=== PATIENT | female | born 1985 | race Asian ===

== ENCOUNTER 2020-08-29 09:39 | Outpatient (CLI) | payer OTHER ==
[2020-08-29 17:57] LABS: SARS-CoV-2 MS2 Positive; SARS-CoV-2 N Gene Negative; SARS-CoV-2 S Gene Negative; SARS-CoV-2 by NAA Not Detected (NotDetected); SARS-CoV-2 orf1ab Negative
== END 2020-08-29 09:40 | disposition home or self-care (01) ==
LOC: LABBT 09:39
PROVIDERS: ATTEND Obstetrics & Gynecology
DX: Z20.828 Contact with and (suspected) exposure to other viral communicable diseases (principal)
CPT/HCPCS: 87635; U0003

== ENCOUNTER 2020-09-01 09:37 | Inpatient (IN) | payer OTHER ==
[2020-09-01] MEDS: Lactated Ringer's 1,000 ML IV SCH ×2 (10:10→11:13)
[2020-09-01 10:52] VITALS: BMI 28.8
[2020-09-01] MEDS ORDERED: Oxytocin 10 UNITS/ML VIAL ONE (10:53)
[2020-09-01] MEDS ORDERED: ePHEDrine 50 MG/ML VIAL ONE (10:54)
[2020-09-01] MEDS ORDERED: Ketorolac Tromethamine 30 MG/ML VIAL ONE (10:54)
[2020-09-01] MEDS ORDERED: PHENYLEPHRINE-NS 100 MCG/ML 10 ML SYRINGE ONE (10:54)
[2020-09-01] MEDS ORDERED: Ondansetron PF 4 MG/2 ML Vial ONE (10:54)
[2020-09-01] MEDS ORDERED: Fentanyl 100 MCG/2 ML VIAL ONE (10:56)
[2020-09-01] MEDS ORDERED: Sodium Chloride 0.9% 10 ML ONE ×2 (10:58→21:18)
[2020-09-01] MEDS ORDERED: Promethazine HCl 25 MG/ML VIAL IM PRN ×3 (11:01→15:55)
[2020-09-01] MEDS ORDERED: Ondansetron PF 4 MG/2 ML Vial IVP PRN ×3 (11:01→15:55)
[2020-09-01] MEDS ORDERED: hydrALAZINE 20 MG/ML VIAL SLOW IVP PRN ×2 (11:01→15:55)
[2020-09-01] MEDS ORDERED: FLU VACC QS2020-21(6MOS UP)/PF 60 MCG/0.5 ML SYRINGE IM ONE (11:15)
[2020-09-01] MEDS ORDERED: Bicitra 30 ML UDCUP PO SCH (11:15)
[2020-09-01] MEDS ORDERED: CEFAZOLIN 2 GM in Premix Bag 1 BAG IVPB SCH (11:15)
[2020-09-01 11:22] LABS: Hemoglobin 12.6 g/dL (12.0-16.0); Mean Corpuscular HGB CONC 32.5 g/dL (32.0-36.0); Mean Corpuscular Hemoglobin 28.9 pg (27.0-31.0); Mean Corpuscular Volume 89.1 fL (78.0-98.0); Mean Platelet Volume 9.3 fL (7.4-10.4); Platelet Count 251 thou/uL (130-400); RBC Distribution Width 13.2 % (11.5-14.5); Red Blood Cell (RBC) Count 4.34 mill/uL (4.20-5.40)
[2020-09-01 12:06] LABS: HBSAg Index 0.25 S/CO (0-0.99); Hep B Surf Ag Non-Reactive S/CO (NonReactive); Syphilis Antibody Nonreactive (Nonreactive); Syphilis Antibody Index 0.04 S/CO (<1.00 Non-Reactive)
[2020-09-01] MEDS ORDERED: Promethazine HCl 25 MG SUPP PR PRN (13:46)
[2020-09-01] MEDS ORDERED: Naloxone HCl 0.4 mg/ml Vial IVP PRN ×2 (13:46)
[2020-09-01] MEDS ORDERED: diphenhydrAMINE 50 MG/ML VIAL IVP PRN (13:46)
[2020-09-01] MEDS ORDERED: Naloxone HCl 0.4 mg/ml Vial IV PRN (13:46)
[2020-09-01] MEDS ORDERED: Communication Order-Pharmacy FS SCH (14:00)
[2020-09-01] MEDS ORDERED: diphenhydrAMINE 25 MG CAP PO PRN (15:55)
[2020-09-01] MEDS ORDERED: Simethicone Chewable 80 MG TAB PO PRN (15:55)
[2020-09-01] MEDS ORDERED: Lanolin Ointment 7 GM TUBE TOP PRN (15:55)
[2020-09-01] MEDS ORDERED: Adacel (T-DAP) 0.5 ML SYRINGE IM ONE (15:55)
[2020-09-01] MEDS ORDERED: Acetaminophen 325 MG TAB PO PRN (15:55)
[2020-09-01] MEDS ORDERED: NS / Oxytocin 40 units/1000ml 1,000 ML ONE (17:26)
[2020-09-01] MEDS: Ketorolac Tromethamine 30 MG/ML VIAL IVP PRN (21:08)
[2020-09-02] MEDS ORDERED: HYDROcodone/Acetaminophen 5/325 mg Tablet PO PRN (02:01)
[2020-09-02] MEDS: Docusate Calcium (SURFAK) 240 MG CAP PO SCH ×3 (03:03→21:04)
[2020-09-02] MEDS: Ketorolac Tromethamine 30 MG/ML VIAL IVP PRN (03:10)
[2020-09-02 05:10] LABS: Hemoglobin 10.5 g/dL (12.0-16.0); Mean Corpuscular HGB CONC 33.3 g/dL (32.0-36.0); Mean Corpuscular Volume 90.1 fL (78.0-98.0); Mean Platelet Volume 8.9 fL (7.4-10.4); Platelet Count 200 thou/uL (130-400); RBC Distribution Width 13.1 % (11.5-14.5); White Blood Cell (WBC) Count 14.7 thou/uL (4.8-10.8)
[2020-09-02] MEDS: HYDROcodone/Acetaminophen 5/325 mg Tablet PO PRN ×3 (09:21→19:01)
[2020-09-02] MEDS: Prenatal Vitamin 1 TAB PO SCH (09:21)
[2020-09-02] MEDS: Ibuprofen 800 MG TAB PO SCH ×2 (14:35→21:04)
--- NOTE | 2020-09-02 15:08 | PDOC.PP ---
Post Progress Note Post Day #: 1 PO intake tolerated: yes Flatus: yes Ambulation: yes Vital Signs (12 hours) Temp Pulse Resp BP Pulse Ox 09/02/20 11:36 98.1 F 79 20 107/67 96 09/02/20 07:51 98.0 F 82 20 114/56 L 95 09/02/20 04:10 98.0 F 77 16 110/59 L Weight Weight 173 lb - Physical Examination General: NAD Cardiovascular: no m/r/g, RRR Respiratory: clear to auscultation bilaterally, non-labored breathing Abdominal: + bowel sounds, lochia, appropriately TTP Extremities: negative homans (B) Skin: CS incision dry & intact, no rash Neurological: no gross focal deficits Psychiatric: A&Ox3, normal affect Result Diagrams: 09/02/20 04:50 Additional Labs: Post Labs Hep Bs Antigen Non-Reactive S/CO (NonReactive) 09/01/20 11:06 Blood Type B POSITIVE 09/01/20 12:05
--- NOTE | 2020-09-02 15:23 | PDOC.LDHP ---
Labor and Delivery H&P HPI: 35 y/o at 39 and 0/7 weeks, with hx of extensive myomectomy done in [place], presents for scheduled primary . Current gestational age (weeks): 39 Due date: 09/08/20 Grav: 1 Para: 0 Current complications: none Abnormal US findings: Yes Current medications: pre-rehan vitamins Allergies/Adverse Reactions: Allergies Allergy/AdvReac Type Severity Reaction Status Date / Time shellfish derived Allergy Verified 09/01/20 10:54 Social history: none - Physical Exam Vital signs reviewed and normal: yes General: NAD, resting Heart: RRR Lungs: CTAB Abdomen: gravid Extremeties: no edema FHT: category 1 - Assessment L&D Assessment: scheduled primary section - Plan Plan: admit to L&D, to OR for section
--- NOTE | 2020-09-02 18:28 | OP ---
DATE OF PROCEDURE: 09/01/2020 TIME OF SERVICE: 1246 hours central daylight savings time. PREOPERATIVE DIAGNOSIS: Intrauterine at 39 weeks with a history of extensive uterine surgery involving a myomectomy making it unsafe for vaginal delivery. POSTOPERATIVE DIAGNOSIS: Intrauterine at 39 weeks with a history of extensive uterine surgery involving a myomectomy making it unsafe for vaginal delivery. PROCEDURE PERFORMED: Primary low-transverse section. FINDINGS: Viable male infant weighing 3075 g or 6 pounds 12 ounces QUANTITATIVE BLOOD LOSS: 685 mL. COMPLICATIONS: None. DESCRIPTION OF PROCEDURE: After obtaining consent, the patient was taken back to the operating room where her regional anesthesia was found to be adequate. The patient was placed in the dorsal supine position with leftward tilt. The skin was tested for adequate anesthesia and a scalpel was then used to make a Pfannenstiel incision which was carried down to the underlying rectus fascia. The fascia was incised in the midline and the fascial incision extended in both lateral directions. 2 Halina clamps were placed at the superior aspect of the fascia and the rectus muscles were dissected away. Similarly, 2 Halina clamps were placed at the inferior aspect of the incision and rectus muscles dissected away. The rectus muscles were then in the midline and the peritoneum identified and entered bluntly with the hemostat. The peritoneal incision was then extended superiorly and inferiorly. A bladder blade was then placed within the peritoneal cavity and a bladder flap was made with Metzenbaum scissors and pickups with teeth. The bladder blade was replaced. A clean scalpel was used to make a uterine incision. The baby was then delivered with gentle fundal pressure without difficulty. The baby's mouth and nose were bulb suctioned and the cord clamped and cut. The baby was then handed to waiting attendants. Cord blood and cord gases were obtained. The placenta was manually extracted. The uterus exteriorized, cleared of all clots and debris, and repaired with #1 chromic suture in a running, locked fashion. Hemostasis at the uterine wall was excellent. The bladder flap was repaired with 2-0 Monocryl in a running fashion. The tubes and ovaries were inspected and appeared normal. The posterior cul-de-sac was blotted dry and the uterus was replaced within the abdomen. Again, the uterus was firm, and hemostasis was excellent at the uterine repair. Peritoneum was closed with 2-0 chromic suture in a running fashion. Fascia was reapproximated with 0 Vicryl, using 2 running sutures tied in the midline. The subcutaneous tissue was irrigated. Hemostasis was assured and the skin closed with 3-0 Monocryl and Dermabond adhesive. The patient was then transferred to the ambulatory bed and taken to recovery in stable condition. Job ID: [id number] [facility]
[2020-09-03] MEDS: Ibuprofen 800 MG TAB PO SCH ×2 (05:04→13:32)
[2020-09-03 05:42] VITALS: TEMP 98.3
[2020-09-03 08:36] VITALS: BP 121/71
[2020-09-03] MEDS: Docusate Calcium (SURFAK) 240 MG CAP PO SCH (08:38)
[2020-09-03] MEDS: Prenatal Vitamin 1 TAB PO SCH (08:38)
--- NOTE | 2020-09-03 11:19 | PDOC.PP ---
Post Progress Note Post Day #: 2 PO intake tolerated: yes Flatus: yes Ambulation: yes Vital Signs (12 hours) Temp Pulse Resp BP Pulse Ox 09/03/20 08:33 98.3 F 91 18 121/71 97 09/03/20 05:00 98.3 F 79 16 110/54 L Weight Weight 173 lb - Physical Examination General: NAD Cardiovascular: no m/r/g, RRR Respiratory: clear to auscultation bilaterally, non-labored breathing Abdominal: + bowel sounds, lochia, no distention, appropriately TTP Extremities: negative homans (B) Skin: CS incision dry & intact, no rash Neurological: no gross focal deficits Psychiatric: A&Ox3, normal affect (Possible DC home later today.) Result Diagrams: 09/02/20 04:50 Additional Labs: Post Labs Hep Bs Antigen Non-Reactive S/CO (NonReactive) 09/01/20 11:06 Blood Type B POSITIVE 09/01/20 12:05
== END 2020-09-03 15:20 | disposition home or self-care (01) | DRG 788 ==
LOC: L&D 09:37 → 3SW 16:21
PROVIDERS: ADMIT Obstetrics & Gynecology; ATTEND Obstetrics & Gynecology
PROC: 10D00Z1 Extraction of Products of Conception, Low, Open Approach (ICD-10-PCS; principal; 2020-09-02)
DX: O34.29 Maternal care due to uterine scar from other previous surgery (principal); Z3A.39 39 weeks gestation of pregnancy; Z37.0 Single live birth; Z20.828 Contact with and (suspected) exposure to other viral communicable diseases
CPT/HCPCS: 36415; 51702; 85027; 86780; 86850; 86900; 86901; 87340; 87635; J0690; J1885; J2270; J2405; J3010; J3490; U0003